=== PATIENT | female | born 1995 | race Caucasian/White ===

== ENCOUNTER 2021-06-03 05:01 | Emergency (ER) | payer BC ==
[~2021-06-03] VITALS: Ht 162.5 cm; Wt 79.4 kg
[2021-06-03] MEDS ORDERED: PROMETHAZINE25 M1 PO (06:25)
== END 2021-06-03 06:38 | disposition home or self-care (01) ==
LOC: ED 05:01
DX: G43.109 Migraine with aura, not intractable, without status migrainosus (principal)